=== PATIENT | female | born 1945 | race Caucasian/White ===

== ENCOUNTER → 2016-04-13 | Outpatient (CLI) | payer MEDICARE, BC | LOC: COL.VAS 09:59 | DX: I82.401 Acute embolism and thrombosis of unspecified deep veins of right lower extremity (principal) ==

== ENCOUNTER → 2016-06-13 | Outpatient (CLI) | payer MEDICARE, BC | LOC: MC.RAD 08:36 | DX: Z12.31 Encounter for screening mammogram for malignant neoplasm of breast (principal) ==

== ENCOUNTER → 2017-07-11 | Outpatient (CLI) | payer MEDICARE, BC | LOC: MC.RAD 10:52 | DX: Z12.31 Encounter for screening mammogram for malignant neoplasm of breast (principal) ==

== ENCOUNTER 2018-07-19 10:22 | Inpatient (IN) | payer MEDICARE, BC ==
[~2018-07-19] VITALS: Ht 167.6 cm; Wt 54.2 kg
[2018-07-19] VITALS (11 sets, daily range): BP systolic 118–146; BP diastolic 55–66; PULSE 60–76; TEMP 97.3–98.3
[2018-07-19 11:07] LABS: HEMATOCRIT 47.4 % (37.0-47.0); HEMOGLOBIN 14.8 g/dl (12.5-16.0); MEAN CELL VOLUME 81 fl (80.0-100.0); MEAN CORPUSCULAR HEMOGLOBIN 25 pg (27.0-31.0); MEAN CORPUSCULAR HGB CONC 31 g/dl (33.0-37.0); MEAN PLATELET VOLUME 9.7 fl (7.4-10.4); PLATELET COUNT 214 K/mm3 (130-400); RED BLOOD COUNT 5.84 M/mm3 (4.10-5.30); REDCELL DISTRIBUTION WIDTH-CV 20.5 % (11.5-14.5)
[2018-07-19 11:22] LABS: CALCIUM 8.7 mg/dL (8.4-10.2); CREATININE, serum 0.73 (0.52-1.25); POTASSIUM 3.6 mmol/L (3.4-5.0)
--- NOTE | 2018-07-19 11:45 | NUR ---
Admission B complete. Pt taken to PACU for block placement by Romulo SEGAL.
[2018-07-19] MEDS ORDERED: SYNTHROID 0.0.025 MG PO (11:58)
[2018-07-19] MEDS ORDERED: NORVASC 5MG5 MG/TAB PO (11:59)
[2018-07-19] MEDS ORDERED: AMBIEN 5MG TABLE5 MG PO (12:00)
[2018-07-19] MEDS ORDERED: PROLIA60 MG/ML SQ (12:01)
[2018-07-19] MEDS ORDERED: ELIQUIS 5MG PO (12:02)
[2018-07-19 14:53] LABS: BASO % 0.2 % (0.0-2.0); EOS % 0.2 % (0-4.0); GRAN # 5.6 (1.4-6.5); GRAN % 67.4 % (42.2-75.2); HEMATOCRIT 48.5 % (37.0-47.0); HEMOGLOBIN 15.2 g/dl (12.5-16.0); LYMPH % 23.5 % (20.0-51.0); MEAN CELL VOLUME 81 fl (80.0-100.0); MEAN CORPUSCULAR HEMOGLOBIN 25 pg (27.0-31.0); MEAN CORPUSCULAR HGB CONC 31 g/dl (33.0-37.0); MEAN PLATELET VOLUME 9.9 fl (7.4-10.4); MONO # 0.7 (0.1-0.6); MONO % 8.1 % (1.7-9.3); PLATELET COUNT 207 K/mm3 (130-400); RED BLOOD COUNT 5.98 M/mm3 (4.10-5.30); REDCELL DISTRIBUTION WIDTH-CV 20.4 % (11.5-14.5)
--- NOTE | 2018-07-19 23:47 | NUR ---
Completed assessment and medication administration; PT tolerated all cares well; PT AMB in hallways with little pain reported; PT A&Ox4, BS active x4, left side mild pain report prior to scheduled Tylenol, HRRR, CTAB, catheter draining yellow clear urine to dependent collection bag; surgical incisions x3 without S/S of infection; No further complaints or concerns at time of exit; PT able to return to bed with personal items and call light within reach; Will continue to monitor. CDA
--- NOTE | 2018-07-20 01:05 | NUR ---
PT resting well in bed; no visible or verbal complaints at time of rounds; Mena continues to drain without obstructions; No further needs at time of exit; Will continue to monitor. CDA
[2018-07-20 05:38] VITALS: BP 140/68; PULSE 68; TEMP 97.8
--- NOTE | 2018-07-20 07:04 | NUR ---
Report given to TEZ Mckoy; No significant changes or concerns at time of shift change. CDA
--- NOTE | 2018-07-20 08:00 | NUR ---
Patient in bed resting. Alert and oriented x 3. Shift assessment complete. Midline incision with gauze, CDI. Lap sites x2 with edges well approximated. Mena to dependent drainage with clear yellow urine present. Denies pain or further needs at this time.
[2018-07-20 08:01] LABS: BASO % 0.2 % (0.0-2.0); EOS % 0.2 % (0-4.0); GRAN # 7.5 (1.4-6.5); HEMATOCRIT 47.9 % (37.0-47.0); LYMPH # 0.9 (1.2-3.4); LYMPH % 10.1 % (20.0-51.0); MEAN CELL VOLUME 80 fl (80.0-100.0); MEAN CORPUSCULAR HEMOGLOBIN 25 pg (27.0-31.0); MEAN CORPUSCULAR HGB CONC 31 g/dl (33.0-37.0); MEAN PLATELET VOLUME 9.9 fl (7.4-10.4); MONO # 0.7 (0.1-0.6); MONO % 7.2 % (1.7-9.3); PLATELET COUNT 209 K/mm3 (130-400); RED BLOOD COUNT 5.98 M/mm3 (4.10-5.30); REDCELL DISTRIBUTION WIDTH-CV 20.1 % (11.5-14.5)
[2018-07-20 08:08] LABS: CALCIUM 7.9 mg/dL (8.4-10.2); CREATININE, serum 0.75 (0.52-1.25); POTASSIUM 3.6 mmol/L (3.4-5.0)
[2018-07-20 08:58] VITALS: BP 122/64; PULSE 70; TEMP 97.9
--- NOTE | 2018-07-20 09:52 | NUR ---
VIKTORIYA met with the patient to discuss a discharge plan. The patient lives in [place] with her , Elijah. The patient does not use any DME and reports independence with ADLs. The patient's PCP is Dr. Eugene Smith and the patient receives her medications from [facility]. The patient reports no difficulties obtaining her medications. The patient reports she turned in advanced directives to the hospital upon this admission. The patient plans to return home with Elijah upon discharge. There are no additional needs at this time.
--- NOTE | 2018-07-20 10:40 | NUR ---
First visit from the diesel pile hammer operator. No needs right now.
[2018-07-20 12:27] VITALS: BP 119/69; PULSE 71; TEMP 97.8
--- NOTE | 2018-07-20 12:30 | NUR ---
Discontinued fisher catheter, aspirated 10ml from balloon. Balloon intact. Patient tolerated procedure well. Denies further needs at this time.
[2018-07-20 15:50] VITALS: BP 139/72; PULSE 70; TEMP 97.9
--- NOTE | 2018-07-20 15:57 | NUR ---
Patient ambulating in halls with family
--- NOTE | 2018-07-20 18:34 | NUR ---
Patient in bed resting, states mild pain to abdomen, given tylenol per orders. Eating supper at this time. Plans to ambulate in [place] later with family. Denies further needs at this time. Will report off to crate builder.
[2018-07-20 20:43] VITALS: BP 119/64; PULSE 75; TEMP 97.5
--- NOTE | 2018-07-20 23:19 | NUR ---
Completed assessment and medication administration; PT able to AMB throughout room and hallways with complications; PT voiding without reported complications; Minimal pain or discomfort; Scheduled Tylenol assisting with reported pain; PT A&Ox4, BS active x4, voiding clear/yellow urine, AMB stable, minimal pain with movement; No further assessed or reported concerns at time of exit; PT able to return to a comfortable position in bed with personal items and call light within reach; Will continue to monitor. CDA
[2018-07-21 00:55] VITALS: BP 123/65; PULSE 66; TEMP 97.4
--- NOTE | 2018-07-21 03:15 | NUR ---
PT resting well in bed; No further assessed or verbalized concerns at time of rounds; Will continue to monitor. CDA
[2018-07-21 04:01] VITALS: BP 122/64; PULSE 63; TEMP 98.2
--- NOTE | 2018-07-21 07:02 | NUR ---
Report given to TEZ Anderson; No significant changes or concerns at time of shift change. CDA
[2018-07-21 07:47] LABS: HEMATOCRIT 45.8 % (37.0-47.0); HEMOGLOBIN 14.5 g/dl (12.5-16.0); MEAN CELL VOLUME 80 fl (80.0-100.0); MEAN CORPUSCULAR HEMOGLOBIN 25 pg (27.0-31.0); MEAN CORPUSCULAR HGB CONC 32 g/dl (33.0-37.0); MEAN PLATELET VOLUME 10.7 fl (7.4-10.4); PLATELET COUNT 228 K/mm3 (130-400); RED BLOOD COUNT 5.72 M/mm3 (4.10-5.30); REDCELL DISTRIBUTION WIDTH-CV 20.1 % (11.5-14.5)
[2018-07-21 07:59] LABS: CREATININE, serum 0.87 (0.52-1.25); POTASSIUM 3.5 mmol/L (3.4-5.0)
[2018-07-21 08:36] VITALS: BP 117/58; PULSE 63; TEMP 97.6
--- NOTE | 2018-07-21 09:30 | NUR ---
Patient alert and oriented, answers questions appropriately. See assessment. Abdomen soft, non tender, non distended. Bowel sounds active. +Flatus. Midline incision and lap sites with edges well approximated, no drainage noted. Urinating well. Ambulates in [place]. No c/o pain or discomfort at this time.
[2018-07-21 12:33] VITALS: BP 119/61; PULSE 65; TEMP 97.3
--- NOTE | 2018-07-21 13:23 | NUR ---
Discharge instructions reviewed with patient and spouse, verbalized understanding. Discharged via wheelchair to auto/home with family at 1320..
== END 2018-07-21 13:20 | disposition home or self-care (01) | DRG 657 ==
LOC: INPTSU 10:22 → SURG 11:30
PROVIDERS: Nurse Anesthetist, Certified Registered; Urology; ADMIT Urology
PROC: 0TT10ZZ Resection of Left Kidney, Open Approach (ICD-10-PCS; principal; 2018-07-19 11:30)
DX: C64.2 Malignant neoplasm of left kidney, except renal pelvis (principal); D68.59 Other primary thrombophilia; I10 Essential (primary) hypertension; Z86.718 Personal history of other venous thrombosis and embolism; Z79.01 Long term (current) use of anticoagulants; R31.0 Gross hematuria; E78.5 Hyperlipidemia, unspecified; E03.9 Hypothyroidism, unspecified
CPT/HCPCS: A4314; J1170; J1644; J1650; J2250; J2704; J2795; J3010; J7120

== ENCOUNTER → 2018-08-15 | Outpatient (CLI) | payer MEDICARE, BC ==
[~2018-08-15] MED LIST: AMBIEN 5MG TABLE5 MG PO; ELIQUIS 5MG PO; NORVASC 5MG5 MG/TAB PO; PROLIA60 MG/ML SQ; SYNTHROID 0.0.025 MG PO
== END ==
LOC: COL.VAS 10:05
DX: Z01.810 Encounter for preprocedural cardiovascular examination (principal); C64.2 Malignant neoplasm of left kidney, except renal pelvis; I82.401 Acute embolism and thrombosis of unspecified deep veins of right lower extremity; I34.0 Nonrheumatic mitral (valve) insufficiency

== ENCOUNTER 2018-10-09 15:55 | Outpatient (CLI) | payer MEDICARE, BC ==
[~2018-10-09] VITALS: Ht 167.6 cm; Wt 54.2 kg
[~2018-10-09 15:55] MED LIST changes: -SYNTHROID 0.0.025 MG PO; +SYNTHROID0.05 MG/TA PO
[2018-10-09 16:22] VITALS: BP 125/55; PULSE 58; TEMP 97.8
== END 2018-10-09 16:30 | disposition home or self-care (01) ==
LOC: EUO 15:55
DX: M81.0 Age-related osteoporosis without current pathological fracture (principal)
CPT/HCPCS: J0897

== ENCOUNTER 2018-10-12 20:30 | Emergency (ER) | payer MEDICARE, BC ==
[~2018-10-12] VITALS: Ht 167.6 cm; Wt 53.2 kg
[2018-10-12 20:36] VITALS: BP 136/70; TEMP 97.1
[2018-10-12] MEDS ORDERED: OMNICEF 300MG300 MG PO (21:04)
[2018-10-12 21:20] VITALS: PULSE 62
== END 2018-10-12 21:20 | disposition home or self-care (01) ==
LOC: COL.ER 20:30
DX: T63.461A Toxic effect of venom of wasps, accidental (unintentional), initial encounter (principal); L08.9 Local infection of the skin and subcutaneous tissue, unspecified; Z90.5 Acquired absence of kidney
CPT/HCPCS: J2930

== ENCOUNTER → 2018-10-17 | Outpatient (CLI) | payer MEDICARE, BC ==
[~2018-10-17] MED LIST changes: +OMNICEF 300MG300 MG PO
== END ==
LOC: MC.RAD 14:54
DX: Z12.31 Encounter for screening mammogram for malignant neoplasm of breast (principal)

== ENCOUNTER → 2019-01-22 | Outpatient (CLI) | payer MEDICARE, BC | LOC: COL.VAS 13:04 | DX: R60.0 Localized edema (principal); D68.59 Other primary thrombophilia; Z86.718 Personal history of other venous thrombosis and embolism ==

== ENCOUNTER → 2019-10-22 | Outpatient (CLI) | payer MEDICARE, BC | LOC: MC.RAD 10:53 | DX: Z12.31 Encounter for screening mammogram for malignant neoplasm of breast (principal) ==

== ENCOUNTER → 2020-11-22 | Outpatient (CLI) | payer MEDICARE, BC ==
[~2020-11-22] VITALS: Ht 167.6 cm; Wt 54.9 kg
[~2020-11-22] MED LIST changes: +COZAAR 50MG50 MG/TAB PO; +MASON NATURAL2000 IU PO
[2020-11-22 07:24] VITALS: BP 146/77; PULSE 65
--- NOTE | 2020-11-22 08:38 | NUR ---
PROCEDURE CANCELLED BY DR CRUZ
== END ==
LOC: COL.RAD 11-17 07:00
DX: R91.8 Other nonspecific abnormal finding of lung field (principal)

== ENCOUNTER → 2021-01-04 | Outpatient (CLI) | payer MEDICARE, BC | LOC: MC.RAD 09:43 | DX: Z12.31 Encounter for screening mammogram for malignant neoplasm of breast (principal) ==

== ENCOUNTER → 2022-01-25 | Outpatient (CLI) | payer MEDICARE, BC | LOC: MC.RAD 10:48 | DX: Z12.31 Encounter for screening mammogram for malignant neoplasm of breast (principal); N64.89 Other specified disorders of breast ==

== ENCOUNTER → 2023-02-01 | Outpatient (CLI) | payer MEDICARE, BC | LOC: MC.RAD 10:37 | DX: Z12.31 Encounter for screening mammogram for malignant neoplasm of breast (principal) ==

== ENCOUNTER → 2024-02-04 | Outpatient (CLI) | payer MEDICARE, BC | LOC: MC.RAD 10:34 | DX: Z12.31 Encounter for screening mammogram for malignant neoplasm of breast (principal) ==